=== PATIENT | male | born 1985 | race Asian ===

== ENCOUNTER 2017-07-31 22:34 | Emergency (ER) | payer BC ==
[~2017-07-31] VITALS: Ht 175.3 cm; Wt 66.7 kg
[2017-07-31 22:42] VITALS: Ht 175.3 cm; Wt 66.7 kg
[2017-07-31 23:45] VITALS: BP 123/77
== END 2017-08-01 00:23 | disposition home or self-care (01) ==
LOC: ED 22:34
DX: F19.151 Other psychoactive substance abuse with psychoactive substance-induced psychotic disorder with hallucinations (principal); F17.210 Nicotine dependence, cigarettes, uncomplicated; Z71.6 Tobacco abuse counseling
CPT/HCPCS: 99406

== ENCOUNTER 2018-11-12 16:44 | Emergency (ER) | payer BC ==
[~2018-11-12] VITALS: Ht 172.7 cm; Wt 61.2 kg
[2018-11-12 18:48] LABS: microscopic required? NO
[2018-11-12 18:54] VITALS: BP 125/66
[2018-11-12 19:09] LABS: UA SPECIFIC GRAVITY <=1.005 (1.005-1.035); urine erythrocyte NEGATIVE (NEGATIVE)
== END 2018-11-12 18:54 | disposition home or self-care (01) ==
LOC: ED 16:44
PROVIDERS: Emergency Medicine
DX: R30.0 Dysuria (principal); M54.5 Low back pain; Z11.3 Encounter for screening for infections with a predominantly sexual mode of transmission
CPT/HCPCS: 87491; 87591; J0696; J1885